=== PATIENT | female | born 1960 | race Caucasian/White ===

== ENCOUNTER 2017-04-22 06:17 | Day surgery (SDC) | payer OTHER ==
[2017-04-22] MEDS ORDERED: FENTAnyl 50 MCG/ML VIAL (10:27)
[2017-04-22] MEDS ORDERED: MIDAZOLAM 1 MG/ML 2 ML INJ (10:27)
== END 2017-04-22 16:04 | disposition home or self-care (01) ==
LOC: GIL 06:17
DX: B96.81 Helicobacter pylori [H. pylori] as the cause of diseases classified elsewhere (principal); K44.9 Diaphragmatic hernia without obstruction or gangrene; K21.0 Gastro-esophageal reflux disease with esophagitis; K29.70 Gastritis, unspecified, without bleeding; J45.909 Unspecified asthma, uncomplicated
CPT/HCPCS: 43239; 87081